=== PATIENT | female | born 1995 | race Caucasian/White ===

== ENCOUNTER 2017-10-27 02:33 | Emergency (ER) | payer OTHER, BC ==
[2017-10-27] MEDS: METHYLPREDNISOLONE 125 MG INJ IV (02:59)
[2017-10-27] MEDS: DIPHENHYDRAMINE 50 MG INJ IV (02:59)
[2017-10-27] MEDS: FAMOTIDINE 20 MG INJ IV (02:59)
[2017-10-27] MEDS: SOD CHLORIDE 0.9% 1,000 ML IV (04:01)
== END 2017-10-27 06:20 | disposition home or self-care (01) ==
LOC: E/R 02:33
DX: H02.845 Edema of left lower eyelid (principal); R40.2142 Coma scale, eyes open, spontaneous, at arrival to emergency department; R40.2362 Coma scale, best motor response, obeys commands, at arrival to emergency department; R40.2252 Coma scale, best verbal response, oriented, at arrival to emergency department
CPT/HCPCS: 96361; 96374; 96375; 99284-25